=== PATIENT | female | born 1995 | race Caucasian/White ===

== ENCOUNTER 2021-11-06 15:46 | Inpatient (IN) ==
[2021-11-06] MEDS ORDERED: OXYTOCIN 30 UNITS/500 ML BAG IV PRN (17:01)
[2021-11-06] MEDS ORDERED: DINOPROSTONE 10 MG INSERT PV ONE (17:13)
[2021-11-06] MEDS ORDERED: PATIENT'S ALLERGY INFO NEEDS ENTERED SCH (17:15)
--- NOTE | 2021-11-06 17:17 | History & Physical Report ---
Date of Service November 06, 2021 Assessment & Plan Admission and Anticipated Discharge Date Admission Date: November 06, 2021 History of Present Illness Chief Complaint: induction of labor for post dates Primary Care Provider: NO PCP 26 F P0000 at 40.4 weeks admitted for post dates induction. care un complicated. GBS is negative. Covid is negative. 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 Review of Systems All systems reviewed & are unremarkable except as noted in HPI & below Physical Exam Constitutional: WD/WN, vitals as above comfortable and + overweight Eyes: PERRL, conjunctivae normal, anicteric sclerae Respiratory: normal respiratory effort, lungs clear to auscultation Cardiovascular: RRR, no murmur, no edema Skin: no rashes, warm and dry Neurologic: patellar DTR's 2+ bilat, sensation intact Psychiatric: A+Ox3, euthymic affect Genitourinary: normal external appearance OB Exam Abdomen: + fundal height and + vertex Manual OB Exam: + cervical dilation fingertip, + cervical effacement 50% and + station (posterior/firm) high OB Exam Monitor Tracing: + external FHT monitor used, + external uterine monitor used, + category I and + normal FHT variability Results & Data ([facility]) Vital Signs (Past 12 Hours) Vital Signs Temp Pulse Resp BP 11/06/21 16:08 77 133/86 11/06/21 15:56 36.7 C 77 20 133/86 Code Status & VTE Plan VTE Prophylaxis Plan VTE Prophylaxis will be ordered: No
--- NOTE | 2021-11-06 17:29 | Labor Progress Brief Note ---
Date of Service November 06, 2021 Assessment & Plan Admission and Anticipated Discharge Date Admission Date: November 06, 2021 Physical Exam Genitourinary: OB Exam Monitor Tracing: + external FHT monitor used, + external uterine monitor used, + category I and + normal FHT variability Cervidil 10 mg placed vaginally Results & Data ([facility]) Vital Signs (Past 12 Hours) Vital Signs Temp Pulse Resp BP 11/06/21 16:08 77 133/86 11/06/21 15:56 36.7 C 77 20 133/86
[2021-11-06 17:41] LABS: Hematocrit (blood only) 35.3 % (37-47); Hemoglobin 12.1 g/dL (12.0-16.0); Mean Corpuscular Hemoglobin 30.9 pg (25-34); Mean Corpuscular Hgb Conc 34.3 g/dL (32-36); Mean Corpuscular Volume 90.3 fL (80-100); Mean Platelet Volume 11.4 fL (7.4-10.4); Platelet Count 266 K/uL (130-400); RDW Coefficient of Variation 14.1 % (11.5-14.5); RDW Standard Deviation 46.1 fL (36.4-46.3); Red Blood Count 3.91 M/uL (4.2-5.4); White Blood Count 9.95 K/uL (4.8-10.8)
[2021-11-07] MEDS ORDERED: BUTORPHANOL TARTRATE 1 MG/ML VIAL IV PRN
[2021-11-07] MEDS ORDERED: OXYTOCIN 30 UNITS/500 ML BAG IV PRN ×2 (07:59→16:41)
--- NOTE | 2021-11-07 08:08 | Obstetrical Progress Note ---
Date of Service November 07, 2021 Assessment & Plan Admission and Anticipated Discharge Date Admission Date: November 06, 2021 Subjective Patient is seen and examined. She is a 26-year-old G1, P0 at 40 weeks and 4 days of gestation, admitted by Dr. Orozco yesterday afternoon for induction of labor for postdates. She has received 1 Cervidil and it was removed at 5:30 AM this morning. She denies contractions but has been feeling lower abdominal discomfort and tightness. She denies leakage of fluid or vaginal bleeding. She reports good movements. Her has been uncomplicated, GBS negative. She denies smoking, alcohol, drug use. She denies any medical problems, any history of STDs including chlamydia, gonorrhea, herpes. heart rate had been reassuring at category 1, [place] was registering contractions every 3 to 5 minutes. Vaginal exam, cervix is 3 cm dilated, 70% effaced, head at -2 station. Discussed the findings and recommended oxytocin augmentation and AROM. Patient agrees with plan and desires epidural for pain as needed. All questions were answered. Results & Data ([facility]) Vital Signs (Past 12 Hours) Vital Signs Temp Pulse Resp BP 11/07/21 07:37 36.7 C 65 121/80 11/07/21 03:29 36.7 C 71 16 107/69 11/07/21 00:01 36.5 C 77 18 138/90
[2021-11-07] MEDS: LACTATED RINGER'S 1,000 ML IV PRN ×3 (08:21→15:21)
[2021-11-07] MEDS ORDERED: ePHEDrine sulfate 50 MG/ML AMP ONE (08:38)
[2021-11-07] MEDS ORDERED: SODIUM CHLORIDE 0.9% INJ 10 ML VIAL ONE (08:38)
[2021-11-07] MEDS ORDERED: fentaNYL citrate 100 MCG/2 ML VIAL ONE (08:38)
[2021-11-07] MEDS ORDERED: BUPIVACAINE 0.25% 30 ML VIAL ONE (08:38)
[2021-11-07] MEDS ORDERED: fentaNYL 2MCG/ML ROPIVACAINE 1.25MG/ML 100 ML BAG EPI ONE (08:39)
[2021-11-07] MEDS ORDERED: NALOXONE HCL 0.4 MG/1 ML VIAL/CARP IV PRN (09:12)
[2021-11-07] MEDS ORDERED: NALBUPHINE HCL INJ 10 MG/ML AMP IV PRN (09:12)
[2021-11-07] MEDS ORDERED: NALOXONE HCL 1 MG in SODIUM CHLORIDE 0.9% 1000ML 1,000 ML IV PRN (09:12)
[2021-11-07] MEDS ORDERED: ePHEDrine sulfate 50 MG/ML AMP IV PRN (09:12)
[2021-11-07] MEDS ORDERED: fentaNYL 2MCG/ML ROPIVACAINE 1.25MG/ML 100 ML BAG EPI PRN (09:12)
[2021-11-07] MEDS ORDERED: diphenhydrAMINE 50 MG/ML VIAL IV PRN (09:12)
[2021-11-07] MEDS ORDERED: ONDANSETRON INJ 2 MG/ML 2 ML VIAL IV PRN (09:12)
--- NOTE | 2021-11-07 09:15 | Anesthesiology Consultation ---
Date of Service November 07, 2021 Assessment & Plan (1) Encounter for pre-operative examination: Chart Review Chart Review: Patient NOT seen in Pre Admission Testing and Acceptable Risk for Labor Epidural Consults Requested none ASA ASA2 Proposed Anesthesia Anesthesia Type: Labor Epidural and CSE Risk / Benefits Reviewed With: PT / POA / Parent / Guardian, Accepts Plan and Informed Consent Obtained History Height/Weight Height: 5 ft 4 in Weight: 94.347 kg Allergies Allergy/AdvReac Type Severity Reaction Status Date / Time No Known Allergies Allergy Unverified 11/06/21 17:19 Medications Home Medications Medication Instructions Recorded Confirmed Last Taken ferrous sulfate 325 mg (65 mg 325 mg PO DAILY 11/06/21 11/06/21 11/06/21 08:00 iron) tablet (iron) prenat.vits,marizol,ecc-oxwr-iplam 1 tab PO DAILY 11/06/21 11/06/21 11/06/21 08:00 Active Medications Generic Name Dose Route Start Last Admin Trade Name Freq PRN Reason Stop Dose Admin Butorphanol Tartrate 1 mg 11/07/21 00:00 11/07/21 00:36 Butorphanol Tartrate 1 Mg/Ml Vial IV 12/07/21 00:00 1 mg Q2HWA PRN Administration Pain Lactated Ringer's 1,000 mls @ 125 mls/hr 11/06/21 17:01 11/07/21 08:21 Lr IV 11/08/21 17:00 125 mls/hr .Q8H PRN Administration L&D Protocol Protocol Oxytocin 30 units in 500 mls @ 2 mls/hr 11/07/21 07:59 11/07/21 08:23 Pitocin IV 11/09/21 07:58 0.12 units/hr .Q24H PRN 2 mls/hr Labor Induction/Augmentation Administration Protocol 0.12 UNITS/HR NPO Date Last Intake of Fluids: 11/07/21 Time Last Intake of Fluids: 07:00 Date Last Intake of Solids: 11/06/21 Time Last Intake of Solids: 19:00 Past Medical History Medical History No known health problems Exercise / Class Metabolic Activity II 4-5 Yardwork/Stairs/Walk up hill Past Surgical History Surgical History No history of previous surgery Past Anesthesia History No Hx of Anesthesia Complications and No Family Hx of Anesthesia Complications History of PONV No Hx of PONV and No Hx of Motion Sickness Social History Smoking Status: Never smoker Hx Alcohol Use: No Hx Substance Use: No substance use type: does not use Review of Systems no chest pain or sob Physical Exam Vital Signs Last Vital Signs Temp 36.7 C 11/07/21 07:37 Pulse 102 H 11/07/21 09:09 Resp 16 11/07/21 03:29 BP 121/80 11/07/21 07:37 Pulse Ox 97 11/07/21 09:09 ENMT Mouth: no TMJ abnormality Thyromental Distance: > or= 3.5 Finger Breadths Mallampati Class: II Neck normal visual inspection Respiratory normal respiratory effort Auscultation: lungs clear to auscultation bilaterally Cardiovascular Rate/Rhythm: regular rate and regular rhythm Musculoskeletal Spine: normal cervical ROM Neurologic moves all extremities Psychiatric Orientation: alert and oriented x 3 Testing Laboratory Results 11/06/21 17:13 Blood Type A Positive 11/06/21 17:13 Antibody Screen NEGATIVE 11/06/21 17:13
--- NOTE | 2021-11-07 11:58 | Obstetrical Progress Note ---
Date of Service November 07, 2021 Assessment & Plan Admission and Anticipated Discharge Date Admission Date: November 06, 2021 Subjective Patient is reevaluated. She has been comfortable, received epidural for pain. heart rate category 1, Cervix is 4 cm dilated, 90% effaced, -2 station, with a bulging bag, AROM, clear fluid was obtained, Pitocin is at 8 miu/min Contractions every 4 to 5 minutes, We will continue to monitor closely, increase Pitocin per protocol. Results & Data ([facility]) Vital Signs (Past 12 Hours) Vital Signs Temp Pulse Resp BP Pulse Ox 11/07/21 11:49 88 98 11/07/21 11:44 90 100 11/07/21 11:41 70 114/60 11/07/21 11:39 65 97 11/07/21 11:34 68 98 11/07/21 11:30 18 11/07/21 11:29 65 96 11/07/21 11:26 64 115/62 11/07/21 11:24 66 97 11/07/21 11:19 69 97 11/07/21 11:15 18 11/07/21 11:14 75 97 11/07/21 11:11 75 94 11/07/21 11:09 77 97 11/07/21 11:06 36.7 C 18 11/07/21 11:04 81 96 11/07/21 11:00 18 11/07/21 10:59 108 H 98 11/07/21 10:57 82 91 11/07/21 10:54 87 97 11/07/21 10:49 102 H 97 11/07/21 10:45 18 11/07/21 10:44 142 H 99 11/07/21 10:41 93 H 115/69 11/07/21 10:39 79 98 11/07/21 10:34 82 99 11/07/21 10:30 18 11/07/21 10:29 77 97 11/07/21 10:26 76 127/73 11/07/21 10:24 69 96 11/07/21 10:21 102 H 115/66 11/07/21 10:19 85 99 11/07/21 10:16 97 H 128/76 11/07/21 10:15 18 11/07/21 10:14 72 95 11/07/21 10:11 86 110/65 11/07/21 10:10 18 11/07/21 10:09 80 96 11/07/21 10:06 78 117/67 11/07/21 10:05 18 11/07/21 10:04 66 97 11/07/21 10:01 71 119/66 11/07/21 10:00 18 11/07/21 09:59 66 97 11/07/21 09:56 76 121/64 11/07/21 09:55 18 11/07/21 09:54 73 97 11/07/21 09:51 79 124/60 11/07/21 09:50 18 11/07/21 09:49 89 98 11/07/21 09:45 18 11/07/21 09:44 78 122/63 97 11/07/21 09:40 18 11/07/21 09:39 77 121/58 L 97 11/07/21 09:37 81 102/55 L 11/07/21 09:35 89 18 110/62 11/07/21 09:34 87 98 11/07/21 09:33 92 H 124/75 11/07/21 09:31 88 131/76 11/07/21 09:29 103 H 98 11/07/21 09:24 75 98 11/07/21 09:19 91 H 98 11/07/21 09:14 73 98 11/07/21 09:09 102 H 97 11/07/21 09:04 78 98 11/07/21 08:59 76 99 11/07/21 08:54 78 99 11/07/21 08:52 103 H 93 11/07/21 08:49 70 98 11/07/21 07:37 36.7 C 65 121/80 11/07/21 03:29 36.7 C 71 16 107/69 11/07/21 00:01 36.5 C 77 18 138/90
[2021-11-07] MEDS ORDERED: MINERAL OIL 30 ML UDC ONE (16:19)
[2021-11-07] MEDS ORDERED: LIDOCAINE 1% LOCAL 20 ML VIAL ONE (16:25)
[2021-11-07] MEDS ORDERED: bisacodyL 10 MG SUPP PR PRN (16:41)
[2021-11-07] MEDS ORDERED: BENZOCAINE 20% AER SPR 82.5 GM CAN EXT PRN (16:41)
[2021-11-07] MEDS ORDERED: HYDROCORTISONE ACETATE 25 MG SUPP PR PRN (16:41)
[2021-11-07] MEDS ORDERED: ACETAMINOPHEN 325 MG TAB PO PRN (16:41)
--- NOTE | 2021-11-07 16:45 | Delivery Summary ---
Vaginal Delivery Summary Date of Service November 07, 2021 Vaginal Delivery Summary The patient was found to be fully dilated and desire to push. She pushed through only 3 contractions and delivered the head without focality. Shoulders were delivered with minimal traction, there was a nuchal cord around the neck x1, which was reduced while delivering the body. The baby was handed off to the mother where mouth and nose were suctioned, cord was clamped times and cut. The baby was handed off to the waiting pediatric team. The cord blood was obtained. There was a small first-degree laceration on medial side of both labia superiorly. 1% lidocaine was used for local anesthesia and those were repaired with 2-0 Vicryl on SH needle in a continuous fashion. Excellent hemostasis achieved. The rest of the vagina and perineum were intact. The placenta was found to be in the vagina delivered spontaneously as intact and complete. Uterus was explored and found to be empty, lower segment was cleared of all clots and debris. EBL was 200 mL fundus was firm. The mom and baby tolerated procedure well. Sponge, needle, instrument count was correct x2. Baby was a viable male , Apgars were 8 or 9 weight is pending. No complications happened and I was present during whole procedure.
--- NOTE | 2021-11-07 17:15 | Anesthesia Procedure Note ---
Date of Service November 07, 2021 Anesthesia Post Epidural Note Vital Signs Vital Signs: Temp Pulse Resp BP Pulse Ox 36.7 C 106 H 18 129/74 99 11/07/21 15:23 11/07/21 17:12 11/07/21 14:45 11/07/21 17:12 11/07/21 16:39 Notes Mental Status: alert / awake / arousable and participated in evaluation Nausea / Vomiting: adequately controlled Pain: adequately controlled Airway Patency, RR, SpO2: stable & adequate BP & HR: stable & adequate Hydration State: stable & adequate Neuraxial Anesthesia: was administered and sensory block is resolving Anesthetic Complications: no major complications apparent and Pt Satisfied with anesthetic care Epidural: Removed without complications and With tip intact
[2021-11-07] MEDS: DOCUSATE SODIUM 100 MG CAP PO SCH (20:32)
[2021-11-08] MEDS: IBUPROFEN 600 MG TAB PO PRN ×3 (00:49→23:53)
[2021-11-08 06:21] LABS: Hematocrit (blood only) 30.7 % (37-47); Hemoglobin 10.3 g/dL (12.0-16.0); Mean Corpuscular Hemoglobin 30.8 pg (25-34); Mean Corpuscular Hgb Conc 33.6 g/dL (32-36); Mean Corpuscular Volume 91.9 fL (80-100); Mean Platelet Volume 10.9 fL (7.4-10.4); Platelet Count 216 K/uL (130-400); RDW Coefficient of Variation 14.2 % (11.5-14.5); RDW Standard Deviation 47.5 fL (36.4-46.3); Red Blood Count 3.34 M/uL (4.2-5.4)
[2021-11-08] MEDS ORDERED: DIPHTHERIA/TETANUS/PERTUSSIS 0.5 ML SYR/VIAL IM ONE (09:00)
[2021-11-08] MEDS ORDERED: MEASLES, MUMPS & RUBELLA VIRUS VIAL SQ ONE (09:00)
--- NOTE | 2021-11-08 09:29 | Obstetrical Progress Note ---
Date of Service November 08, 2021 Subjective Ambulation: ambulating normally Voiding: no voiding problems Passing Gas:: Yes Diet Tolerance:: regular diet Lochia:: Small Feeding Type:: breast feeding Current Pain Level(1-10): 0 doing well Physical Exam Constitutional WD/WN, vitals as above comfortable Genitourinary abdomen soft and non-tender fundus firm no edema neg Amish's tent d/c in AM Results & Data ([facility]) Vital Signs (Past 12 Hours) Vital Signs Temp Pulse Resp BP Pulse Ox 11/08/21 03:25 36.8 C 73 16 119/78 98 11/08/21 00:25 36.6 C 81 16 126/87 98 Laboratory Results 11/06/21 11/06/21 11/08/21 17:13 17:13 05:56 WBC 9.95 12.90 H RBC 3.91 L 3.34 L Hgb 12.1 10.3 L Hct 35.3 L 30.7 L MCV 90.3 91.9 MCH 30.9 30.8 MCHC 34.3 33.6 RDW Std Deviation 46.1 47.5 H RDW Coeff of Manjinder 14.1 14.2 Plt Count 266 216 MPV 11.4 H 10.9 H Blood Type A Positive Antibody Screen NEGATIVE
[2021-11-08] MEDS: FERROUS SULFATE 325 MG TAB PO SCH (09:42)
[2021-11-08] MEDS: DOCUSATE SODIUM 100 MG CAP PO SCH ×2 (09:42→21:21)
[2021-11-08] MEDS: PRENATAL VITAMIN 1 TAB PO SCH (09:42)
[2021-11-08] MEDS ORDERED: bisacodyL 5 MG TABEC PO SCH (20:00)
[2021-11-09 06:51] LABS: Hematocrit (blood only) 32.2 % (37-47); Hemoglobin 10.9 g/dL (12.0-16.0)
[2021-11-09] MEDS: FERROUS SULFATE 325 MG TAB PO SCH (08:03)
[2021-11-09] MEDS: DOCUSATE SODIUM 100 MG CAP PO SCH (08:03)
[2021-11-09] MEDS: PRENATAL VITAMIN 1 TAB PO SCH (08:03)
--- NOTE | 2021-11-09 09:03 | Obstetrical Progress Note ---
Date of Service November 09, 2021 Assessment & Plan Admission and Anticipated Discharge Date Admission Date: November 06, 2021 Subjective Patient is seen and examined. She feels well, no complaints. Ambulating without dizziness Voiding without difficulty Tolerating regular diet with out N&V Bleeding is minimal No fever/ chills/ CP/ SOB/ N&V/ Leg pain Bottle feeding without problems Vital Signs Temp Pulse Resp BP Pulse Ox 11/09/21 08:00 36.7 C 111 H 18 121/79 97 11/08/21 23:30 36.9 C 73 16 131/79 11/08/21 15:37 36.9 C 73 18 123/79 95 11/08/21 11:05 36.7 C 68 16 117/80 98 Lab Results 11/06/21 11/06/21 11/08/21 Range/Units 17:13 17:13 05:56 WBC 9.95 12.90 H (4.8-10.8) K/uL RBC 3.91 L 3.34 L (4.2-5.4) M/uL Hgb 12.1 10.3 L (12.0-16.0) g/dL Hct 35.3 L 30.7 L (37-47) % MCV 90.3 91.9 (80-100) fL MCH 30.9 30.8 (25-34) pg MCHC 34.3 33.6 (32-36) g/dL RDW Std Deviation 46.1 47.5 H (36.4-46.3) fL RDW Coeff of Manjinder 14.1 14.2 (11.5-14.5) % Plt Count 266 216 (130-400) K/uL MPV 11.4 H 10.9 H (7.4-10.4) fL Blood Type A Positive Antibody Screen NEGATIVE 11/09/21 Range/Units 06:30 WBC (4.8-10.8) K/uL RBC (4.2-5.4) M/uL Hgb 10.9 L (12.0-16.0) g/dL Hct 32.2 L (37-47) % MCV (80-100) fL MCH (25-34) pg MCHC (32-36) g/dL RDW Std Deviation (36.4-46.3) fL RDW Coeff of Manjinder (11.5-14.5) % Plt Count (130-400) K/uL MPV (7.4-10.4) fL Blood Type Antibody Screen PE: General: Alert, orientedx3, NAD Abd: soft, NT, fundus firm, below Umbilicus Perineum intact, Lochia rubra minimal Ext; NT, no edema AP: 26 yo s/p , ppd# 2 VSS Afebrile doing well Continue routine care All questions were answered Discussed when to call D/C home , f/u in office Results & Data ([facility]) Vital Signs (Past 12 Hours) Vital Signs Temp Pulse Resp BP Pulse Ox 11/09/21 08:00 36.7 C 111 H 18 121/79 97 11/08/21 23:30 36.9 C 73 16 131/79
== END 2021-11-09 11:50 | disposition home or self-care (01) | DRG 807 ==
LOC: 4S1 15:46 → 4S2 11-07 19:06
DX: Z3A.40 40 weeks gestation of pregnancy; O70.0 First degree perineal laceration during delivery; Z37.0 Single live birth; O48.0 Post-term pregnancy; O69.81X0 Labor and delivery complicated by cord around neck, without compression, not applicable or unspecified